=== PATIENT | male | born 1970 | race Hispanic/Latino ===

== ENCOUNTER 2018-02-12 18:31 | Inpatient (IN) | payer SELFPAY ==
[~2018-02-12] VITALS: Ht 182.9 cm; Wt 117.9 kg
[2018-02-12 19:06] LABS: EOSINOPHILS % (AUTO) 3.2 % (0.0-8.0); LYMPHOCYTES % (AUTO) 30.9 % (21.0-51.0); MEAN CORPUSCULAR HEMOGLOBIN 29.7 pg (27.0-33.0); MEAN CORPUSCULAR HGB CONC 34.4 g/dL (32.0-36.0); MEAN CORPUSCULAR VOLUME 86.3 fL (79-99); MONOCYTES % (AUTO) 4.9 % (3.0-13.0); PLATELET COUNT (AUTO) 571 K/uL (130-400); RED BLOOD CELL COUNT(AUTO) 4.64 MIL/uL (4.50-6.20); RED CELL DISTRIBUTION WIDTH 13.8 % (11.0-15.5); WHITE BLOOD COUNT (AUTO) 15.6 K/uL (4.8-10.8)
[2018-02-12 19:23] LABS: APPEARANCE,URINE Clear (CLEAR); BILIRUBIN,URINE Negative (NEGATIVE); COLOR,URINE Yellow (YELLOW); GLUCOSE, URINE (UA) Negative (NEGATIVE); KETONES,URINE Negative (NEGATIVE); LEUKOCYTE ESTERASE ,URINE Negative (NEGATIVE); NITRATE,URINE Negative (NEGATIVE); OCCULT BLOOD,URINE Negative (NEGATIVE); PH,URINE 5.5 (5.0-8.0); PROTEIN,URINE Negative (NEGATIVE)
[2018-02-12 19:23] LABS: POTASSIUM 4.8 mmol/L (3.5-5.1)
[2018-02-12 19:27] LABS: ALBUMIN 3.4 g/dL (3.5-5.0); BILIRUBIN,TOTAL 0.2 mg/dL (0.2-1.0); TOTAL PROTEIN, SERUM 7.5 g/dL (6.0-8.3)
[2018-02-12] MEDS ORDERED: LACTATED RINGERS 1000ML 1,000 ML IV ONE (20:06)
[2018-02-12] MEDS ORDERED: ZOSYN 3.375GM+NS 50ML 50 ML IV ONE (20:38)
[2018-02-12] MEDS: LACTATED RINGERS 1000ML 1,000 ML IV SCH (21:07)
[2018-02-12] MEDS ORDERED: MORPHINE SULFATE 2 MG/ML 1ML SYG IVP PRN (21:15)
[2018-02-12] MEDS ORDERED: ONDANSETRON HCL 4 MG/2 ML VIAL IV PRN (21:15)
[2018-02-12] MEDS ORDERED: ACETAMINOPHEN 325 MG TAB PO PRN (21:15)
[2018-02-12 22:35] VITALS: BP 145/80
[2018-02-13] VITALS (17 sets, daily range): BP systolic 101–145; BP diastolic 40–76
[2018-02-13] MEDS ORDERED: ZOSYN 3.375GM+NS 50ML 50 ML IV ONE (03:49)
[2018-02-13] MEDS: ZOSYN 3.375GM+NS 50ML 50 ML IV SCH ×3 (04:03→21:00)
[2018-02-13] MEDS: LACTATED RINGERS 1000ML 1,000 ML IV SCH ×3 (04:03→21:12)
[2018-02-13 04:51] LABS: CREATININE 1.1 mg/dL (0.5-1.5); POTASSIUM 4.1 mmol/L (3.5-5.1)
[2018-02-13 04:54] LABS: HEMATOCRIT 37.7 % (42-54); MEAN CORPUSCULAR HEMOGLOBIN 29.1 pg (27.0-33.0); MEAN CORPUSCULAR HGB CONC 33.7 g/dL (32.0-36.0); MEAN CORPUSCULAR VOLUME 86.4 fL (79-99); PLATELET COUNT (AUTO) 481 K/uL (130-400); RED BLOOD CELL COUNT(AUTO) 4.36 MIL/uL (4.50-6.20); RED CELL DISTRIBUTION WIDTH 13.7 % (11.0-15.5); WHITE BLOOD COUNT (AUTO) 13.8 K/uL (4.8-10.8)
[2018-02-13] MEDS: FAMOTIDINE/PF 20 MG/2 ML VIAL IV SCH ×2 (14:10→21:05)
[2018-02-13] MEDS ORDERED: BUPIVACAINE/EPI/PF 0.5% 30ML VIAL IJ ONE (16:16)
[2018-02-13] MEDS ORDERED: MIDAZOLAM HCL 1 MG/ML 2ML VIAL ONE (16:19)
[2018-02-13] MEDS ORDERED: FENTANYL CITRATE PF 50 MCG/1 ML 5ML AMP IV ONE (16:19)
[2018-02-13] MEDS ORDERED: ROCURONIUM 10MG/1ML SYR 10 MG/ML ML ONE ×2 (16:27→16:52)
[2018-02-13] MEDS ORDERED: DEXAMETHASONE SOD PHOSPHATE 10MG/ML 1ML VIAL ONE (16:51)
[2018-02-13] MEDS ORDERED: SUCCINYLCHOLINE CHLORIDE 20 MG/ML 10 ML VIAL ONE (16:51)
[2018-02-13] MEDS ORDERED: ONDANSETRON HCL 4 MG/2 ML VIAL ONE (16:52)
[2018-02-13] MEDS ORDERED: GLYCOPYRROLATE 1 MG/5 ML SYRINGE ONE (16:52)
[2018-02-13] MEDS ORDERED: NEOSTIGMINE 5MG/5ML SYR IV ONE (16:52)
[2018-02-13] MEDS ORDERED: PROPOFOL 10 MG/ML 20ML VIAL IV ONE (17:09)
[2018-02-13] MEDS ORDERED: FENTANYL CITRATE PF 50 MCG/1 ML 2ML VIAL ONE (17:10)
[2018-02-13] MEDS ORDERED: MEPERIDINE-PF 25 MG/ML SYG ONE (17:29)
[2018-02-13] MEDS ORDERED: ACETAMINOPHEN 325 MG TAB PO PRN (19:30)
[2018-02-13] MEDS ORDERED: TRAMADOL HCL 50 MG TABLET PO PRN (19:30)
[2018-02-13] MEDS: DOCUSATE SODIUM 100 MG CAP PO SCH (21:05)
[2018-02-14 04:00] VITALS: BP 148/71
[2018-02-14 04:45] LABS: BASOPHILS % (AUTO) 0.7 % (0.0-5.0); EOSINOPHILS % (AUTO) 0.1 % (0.0-8.0); HEMATOCRIT 39.8 % (42-54); LYMPHOCYTES % (AUTO) 7.2 % (21.0-51.0); MEAN CORPUSCULAR HEMOGLOBIN 28.9 pg (27.0-33.0); MEAN CORPUSCULAR HGB CONC 33.4 g/dL (32.0-36.0); MEAN CORPUSCULAR VOLUME 86.5 fL (79-99); MONOCYTES % (AUTO) 2.6 % (3.0-13.0); NEUTROPHILS % (AUTO) 89.4 % (40.0-77.0); PLATELET COUNT (AUTO) 561 K/uL (130-400); RED CELL DISTRIBUTION WIDTH 14.1 % (11.0-15.5); WHITE BLOOD COUNT (AUTO) 20.8 K/uL (4.8-10.8)
[2018-02-14] MEDS: ZOSYN 3.375GM+NS 50ML 50 ML IV SCH ×3 (04:46→21:19)
[2018-02-14] MEDS: LACTATED RINGERS 1000ML 1,000 ML IV SCH ×2 (04:46→21:29)
[2018-02-14 04:51] LABS: CREATININE 1.2 mg/dL (0.5-1.5); POTASSIUM 4.6 mmol/L (3.5-5.1)
[2018-02-14 08:00] VITALS: BP 128/71
[2018-02-14] MEDS: DOCUSATE SODIUM 100 MG CAP PO SCH ×2 (08:05→21:18)
[2018-02-14] MEDS: FAMOTIDINE/PF 20 MG/2 ML VIAL IV SCH ×2 (08:05→21:18)
[2018-02-14] MEDS ORDERED: MORPHINE SULFATE 4 MG/1ML SYG ONE ×2 (10:26→14:58)
[2018-02-14 12:00] VITALS: BP 119/60
[2018-02-14 16:00] VITALS: BP 143/60
[2018-02-14 19:57] VITALS: BP 128/58
[2018-02-14] MEDS: TRAMADOL HCL 50 MG TABLET PO PRN (21:29)
[2018-02-14 23:56] VITALS: BP 111/61
[2018-02-15] MEDS ORDERED: MORPHINE SULFATE 4 MG/1ML SYG ONE (00:07)
[2018-02-15 04:00] VITALS: BP 138/76
[2018-02-15 05:14] LABS: HEMATOCRIT 35.9 % (42-54); MEAN CORPUSCULAR HEMOGLOBIN 27.9 pg (27.0-33.0); MEAN CORPUSCULAR HGB CONC 32.6 g/dL (32.0-36.0); MEAN CORPUSCULAR VOLUME 85.7 fL (79-99); PLATELET COUNT (AUTO) 411 K/uL (130-400); RED BLOOD CELL COUNT(AUTO) 4.18 MIL/uL (4.50-6.20); RED CELL DISTRIBUTION WIDTH 13.8 % (11.0-15.5); WHITE BLOOD COUNT (AUTO) 15.3 K/uL (4.8-10.8)
[2018-02-15 05:25] LABS: CREATININE 1.2 mg/dL (0.5-1.5); POTASSIUM 3.9 mmol/L (3.5-5.1)
[2018-02-15 05:42] LABS: BAND NEUTROPHILS % (MANUAL) 2 % (0-2); BASOPHILS % (MANUAL) 1 % (0-2); LYMPHOCYTES % (MANUAL) 37 % (22-44); MAN.DIFF COMMENT-IMPRESSION MANUAL DIFFERENTIAL; MONOCYTES % (MANUAL) 3 % (2-9); SEGMENTED NEUTROPHILS % 57 % (40-70)
[2018-02-15 05:43] LABS: PLATELET MORPHOLOGY COMMENT ADEQUATE
[2018-02-15] MEDS: ZOSYN 3.375GM+NS 50ML 50 ML IV SCH ×2 (05:43→14:43)
[2018-02-15] MEDS: LACTATED RINGERS 1000ML 1,000 ML IV SCH (05:47)
[2018-02-15 08:09] VITALS: BP 115/59
[2018-02-15] MEDS: FAMOTIDINE/PF 20 MG/2 ML VIAL IV SCH (09:10)
[2018-02-15] MEDS: DOCUSATE SODIUM 100 MG CAP PO SCH (09:10)
[2018-02-15] MEDS ORDERED: AMOX-429 PO (09:58)
[2018-02-15 10:53] VITALS: BP 142/58
[2018-02-15] MEDS: TRAMADOL HCL 50 MG TABLET PO PRN (14:44)
[2018-02-15 16:26] VITALS: BP 132/56
== END 2018-02-15 18:15 | disposition home or self-care (01) | DRG 372 ==
LOC: EDH 18:31 → EDHIP 18:32 → 4BH 22:38
PROVIDERS: ADMIT Internal Medicine; ATTEND Internal Medicine
PROC: 0W9G40Z Drainage of Peritoneal Cavity with Drainage Device, Percutaneous Endoscopic Approach (ICD-10-PCS; 2018-02-13)
PROC: 3E1M38Z Irrigation of Peritoneal Cavity using Irrigating Substance, Percutaneous Approach (ICD-10-PCS; principal; 2018-02-13 16:15)
DX: K35.33 Acute appendicitis with perforation, localized peritonitis, and gangrene, with abscess (principal); E44.1 Mild protein-calorie malnutrition; Z68.35 Body mass index [BMI] 35.0-35.9, adult; E66.9 Obesity, unspecified; K59.00 Constipation, unspecified; K66.0 Peritoneal adhesions (postprocedural) (postinfection)
CPT/HCPCS: 36415; 74176; 80048; 80053; 81003; 82150; 82948; 83690; 85025; 85027; A4344; G0378; J0330; J1100; J2175; J2250; J2270; J2405; J2543; J2704; J2710; J3010; J3490; J7030; J7120